=== PATIENT | female | born 1950 | race Caucasian/White ===

== ENCOUNTER 2025-03-31 10:51 | Emergency (ER) | payer BC, SELFPAY ==
[2025-03-31] VITALS (8 sets, daily range): BP systolic 148–167; BP diastolic 74–91; BMI 28.0
[2025-03-31 11:07] LABS: % Basophils 0.6 % (0-2); % Eosinophils 1.1 % (0-6); % Immature Granulocytes 0.1 % (0-0.5); % Lymphocytes 21.3 % (20.5-51.1); % Monocytes 12.6 % (1.7-9.3); % Neutrophils 64.3 % (42.2-75.2); Absolute Basophils 0.1 10^3/uL (0-0.2); Absolute Eosinophils 0.1 10^3/uL (0-0.7); Absolute Lymphocytes 1.7 10^3/uL (1.2-3.4); Hematocrit 38.6 % (37.0-47.0); Hemoglobin 12.8 g/dL (12.0-16.0); Mean Corp Hgb Conc. 33.2 g/dL (33.0-37.0); Mean Corpuscular Hgb 27.5 pg (27.0-31.0); Mean Platelet Volume 9.5 fL (7.4-10.4); Nucleated Red Blood Cells % 0 %; Platelet Count 242 10^3/uL (130-400); Red Blood Cell Count 4.65 10^6/uL (4.20-5.40); Red Cell Dist. Width 13.7 % (11.5-14.5); White Blood Cell Count 7.8 10^3/uL (4.8-10.8)
[2025-03-31 11:43] LABS: Troponin I < 0.012 ng/ml
[2025-03-31 11:46] LABS: ALT (SGPT) 18 U/L (0-35); AST (SGOT) 21 U/L (14-36); Albumin 4.3 g/dl (3.5-5.0); Alkaline Phosphatase 54 U/L (38-126); Blood Urea Nitrogen 15 mg/dl (7-17); Calcium 8.5 mg/dl (8.4-10.2); Carbon Dioxide 24 mmol/L (22-30); Chloride 113 mmol/L (98-107); Estimated Creatinine Clearance 56 ml/min; Glucose 136 mg/dl (70-99); Potassium 3.9 mmol/L (3.5-5.1); Sodium 142 mmol/L (135-145); Total Bilirubin 0.3 mg/dl (0.2-1.3); Total Protein 6.7 g/dl (6.3-8.2); Urine Albumin 2+ (Neg - Trace); Urine Bilirubin Negative (Negative); Urine Character Clear (Clear); Urine Color Yellow; Urine Glucose Negative (Negative); Urine Ketone Negative (Negative); Urine Leukocyte Negative (Negative); Urine Nitrite Negative (Negative); Urine Occult Blood Negative (Negative); Urine Urobilinogen Negative (Neg - 1+); Urine pH 6.5 (5.0-9.0); eGFR > 60.00
--- NOTE | 2025-03-31 11:53 | ED.GENMED ---
History of Present Illness
General
Chief Complaint: Fainting/Passed Out
Source: patient
Exam Limitations: none
Time Seen by Provider: 03/31/25 11:29
History of Present Illness
History of Present Illness:
74-year-old female brought here by EMS from [facility] after syncopal versus near syncopal episode. She was sitting in the chair getting her hair dried after the dye was placed in her hair and she started to feel lightheaded. There is no chest
pain. There is no shortness of breath or headache. She neck thing she remembers is waking up to EMS personnel asking her if she was okay. Apparently per bystanders she was unresponsive for 2 to 3 minutes.
Phy Exam
Physical Exam
Physical Exam:
General: Well-appearing female no acute respiratory distress
HEENT: Normocephalic atraumatic
Heart: Regular rate and rhythm
Lungs: Clear no wheeze
Neurologic alert and oriented
Extremities: No cyanosis
Course
Orders/Labs/Results
Orders:
Orders
03/31/25 10:56
Electrocardiogram (*1) Urgent
Reason for Study: Chest Pain
EKG- Treatment ONCE
03/31/25 11:00
Complete Blood Count/With Diff Urgent
Troponin I Urgent
03/31/25 11:19
Comprehensive Metabolic Panel Urgent
Urinalysis Reflex To Culture Urgent
Date Specimen was Collected: 03/31/25
Time Specimen was Collected: 11:18
Urine Microscopic Reflex Cult Urgent
Abnormal Lab Results
03/31/25 03/31/25
11:00 11:19
Absolute Monos (auto) 1.0 H 10^3/uL
(0.1-0.6)
Monocytes % 12.6 H %
(1.7-9.3)
Chloride 113 H mmol/L
(98-107)
Glucose 136 H mg/dl
(70-99)
Urine Albumin (Reflex) 2+ A
(Neg - Trace)
03/31/25 11:00
03/31/25 11:19
Vital Signs
Initial and Last Documented VS:
Initial Vital Signs
Pulse Resp Pulse Ox
79 19 97
03/31/25 10:57 03/31/25 10:57 03/31/25 10:57
Last Documented Vital Signs
Temp Pulse Resp BP Pulse Ox
98.2 F 78 16 148/84 99
03/31/25 13:02 03/31/25 13:02 03/31/25 13:02 03/31/25 13:02 03/31/25 13:02
MDM/Problems Addressed
Differential Diagnosis Includes:
Syncope versus near syncope. Question anemia arrhythmia electrolyte abnormality or vasovagal episode
Since receiving fluids in the EMS and waiting here in the emergency room, she feels much better. There is preceding symptoms of lightheadedness. I suspect likely vasovagal. EKG shows sinus rhythm with right bundle branch block.
*Critical Care Note
Total Time (30-74mins, 75-104mins- exclusive of procedures): Not Applicable
Update Note
Update Note:
Patient feeling much better on reassessment. She stood to take a shower here. She was feeling well no lightheadedness no chest pain. No further near syncope or syncopal episodes. No arrhythmias on the monitor. Labs look well. I suspect
vasovagal episode today. Stable for discharge
ED Attending Note
-
Portions of this chart may have been created with voice recognition software.� Occasional wrong word or��sound alike� substitutions may have occurred due to the inherent limitations of voice recognition software.
Discharge Plan
Departure
Patient Disposition: Home (Routine Discharge)
Date of Disposition: 03/31/25
Time of Disposition: 13:07
Patient with high blood pressure during this ER visit?: No
Discharge Problem:
Syncope
Instructions: Syncope (Fainting) (DC)
Prescriptions:
No Action
No Current Medications
0
Referrals:
Viktoriya Layton MD [Family Provider, Family Practice]
Activity Restrictions/Additional Instructions:
Stay hydrated. Return here for worsening symptoms otherwise follow-up with your doctor
Interventions
Interventions:
*Risk Screen - Suicide Last Done: 03/31/25 11:00
*General Assessment Last Done: 03/31/25 11:00
*Neglect/Abuse Screening Last Done: 03/31/25 11:00
*ED- Fall Risk Assessment Last Done: 03/31/25 11:00
*Nursing Disposition Last Done: 03/31/25 13:02
ED- Cardiac Assessment Last Done: 03/31/25 11:00
ED- Neurological Assessment Last Done: 03/31/25 11:00
Discharge Date and Time
Print Language: MALTESE
[2025-03-31 11:58] LABS: Urine Red Blood Cell 0-2 /HPF (0-2); Urine Squamous Cell 0-2 /LPF (Few); Urine White Cell 0-2 /HPF (0-5)
== END 2025-03-31 13:10 | disposition home or self-care (01) ==
LOC: EMR 10:51
PROVIDERS: EMERGENCY PHYSICIAN Student in an Organized Health Care Education/Training Program; FAMILY PHYSICIAN Family Medicine
DX: R55 Syncope and collapse (principal); I45.10 Unspecified right bundle-branch block
CPT/HCPCS: 99284; 80053; 81003; 81015; 84484; 85025; 93005